=== PATIENT | female | born 1960 | race Caucasian/White ===

== ENCOUNTER → 2016-07-08 | Outpatient (CLI) | payer BC ==
[2016-07-08 08:28] LABS: Basophils % (A) 1 %; CH 31.5; CHCM 33.8; Eosinophils # (A) 0.1 k/uL (0-0.7); Eosinophils % (A) 2 %; HCT 40.4 % (34.0-46.0); HDW 2.44; HGB 13.5 gm/dL (11.4-16.0); Luc # (Auto) 0.08; Luc % (Auto) 2; Lymphocytes # (A) 1.3 k/uL (1.0-4.8); Lymphocytes % (A) 33 %; MCH 31.2 pg (25.0-35.0); MCHC 33.3 g/dL (31.0-37.0); MCV 93.7 fL (80.0-100.0); Mean Platelet Volume 6.8; Monocytes # (A) 0.2 k/uL (0-1.0); Monocytes % (A) 6 %; Neutrophils # (A) 2.1 k/uL (1.3-7.7); Neutrophils % (A) 56 %; RBC 4.32 m/uL (3.80-5.40); RDW 12.8 % (11.5-15.5); WBC 3.8 k/uL (3.8-10.6); WBC (Perox) 3.92
[2016-07-08 08:45] LABS: ALT 31 U/L (9-52); AST 18 U/L (14-36); Alkaline Phosphatase 46 U/L (38-126); Anion Gap 7 mmol/L; Blood Urea Nitrogen 21 mg/dL (7-17); Calcium 9.5 mg/dL (8.4-10.2); Carbon Dioxide 29 mmol/L (22-30); Chloride 107 mmol/L (98-107); Cholesterol 177 mg/dL (<200); Glucose 103 mg/dL (74-99); HDL Cholesterol 44 mg/dL (40-60); Non-African American GFR(MDRD) >60 (>60 ml/min/1.73 sqM); Potassium 4.4 mmol/L (3.5-5.1); Sodium 143 mmol/L (137-145); Total Bilirubin 1.1 mg/dL (0.2-1.3); Total Protein 6.9 g/dL (6.3-8.2); Triglycerides 91 mg/dL (<150)
[2016-07-08 13:04] LABS: Hemoglobin A1C 5.6 % (4.2-6.1)
[2016-07-11 07:01] LABS: HIV-1/HIV-2 Ab Screen NONREAC (NON REAC)
== END | disposition home or self-care (01) ==
LOC: LABWHC1 07:57
PROVIDERS: ATTEND Family Medicine
DX: M25.50 Pain in unspecified joint (principal); R00.2 Palpitations; E78.00 Pure hypercholesterolemia, unspecified; R73.9 Hyperglycemia, unspecified
CPT/HCPCS: 36415; 80053; 80061; 82306; 83036; 84443; 85025; 85652; 86431; 87389

== ENCOUNTER → 2016-07-27 | Outpatient (CLI) | payer BC ==
--- NOTE | 2016-07-28 06:48 | BD ---
EXAMINATION TYPE: MG DEXA axial skeleton. DATE OF EXAM: 07/27/2016 4:01 PM COMPARISON: NONE CLINICAL HISTORY: Height: Weight: FRAX RISK QUESTIONS: Alcohol (3 or more units per day): no Family History (Parent hip fracture): no Glucocorticoids (More than 3mos): no (Ex: prednisone, prednisolone, methylprednisolone, dexamethasone, and hydrocortisone). History of Fracture in Adulthood: no Secondary Osteoporosis: 1. Type 1 Diabetes: no 2. Hyperthyroidism: no 3. Menopause before 45: no 4. Malnutrition: no 5. Chronic liver disease: no Rheumatoid Arthritis: no Current Tobacco Use: no RISK FACTORS HISTORY OF: Hip Fracture (Right/Left): no Spine Fracture: no History of Wrist Fracture: no Surgery to Spine/Hip(right/left)/Wrist (right/left): no Family History of Osteoporosis: yes Active: yes Diet low in dairy products/other sources of calcium: no Postmenopausal woman: age 46 Lost more than 2 inches in height since high school: no Frequent falls: no Poor Health: no Adrenal Insufficiency: no MEDICATIONS: metoprolol tartrate, ambien cr Additional History: EXAM MEASUREMENTS: Bone mineral densitometry was performed using the [employer] System. Bone mineral density as measured about the Lumbar spine is: ----- L1-L4(G/cm2): 0.983 T Score Values are as follows: ----- L2: -1.7 ----- L3: -1.6 ----- L4: -2.3 ----- L1-L4: -1.6 Bone mineral density has: decreased -22.6 % since study of: 2001 Bone mineral density about the R hip (g/cm2): 0.848 Bone mineral density about the L hip (g/cm2): 0.819 T Score values are as follows: -----R Neck: -1.4 -----L Neck: -1.6 -----R Total: -1.2 -----L Total: -1.1 Bone mineral density has: decreased -17.3 % since study of: 2001 IMPRESSION: OSTEOPENIA. MAJOR OSTEOPOROTIC FRACTURE RISK: 6.9% HIP FRACTURE RISK: 0.6% NOTE: T-SCORE=SD OF THE YOUNG ADULT MEAN.
--- NOTE | 2016-07-28 15:49 | MM ---
Reason for exam: screening (asymptomatic). Last mammogram was performed 1 year and 10 months ago. History: Patient is postmenopausal, has history of other cancer at age 49, and had first child at age 32. Family history of breast cancer in maternal aunt at age 60. Physical Findings: A clinical breast exam by your physician is recommended on an annual basis and results should be correlated with mammographic findings. MG 3D Screening Mammo W/Cad Bilateral CC and MLO view(s) were taken. Prior study comparison: September 14, 2014, left breast MG work up mamm w CAD LT. July 09, 2014, bilateral MG screening mammo w CAD. The breast tissue is heterogeneously dense. This may lower the sensitivity of mammography. Asymmetric breast tissue in the right breast. No significant changes when compared with prior studies. ASSESSMENT: Benign, BI-RAD 2 RECOMMENDATION: Routine screening mammogram of both breasts in 1 year.
== END | disposition home or self-care (01) ==
LOC: RADMAMWWP 15:41
PROVIDERS: ATTEND Obstetrics & Gynecology
DX: Z12.31 Encounter for screening mammogram for malignant neoplasm of breast (principal); M85.80 Other specified disorders of bone density and structure, unspecified site; Z78.0 Asymptomatic menopausal state
CPT/HCPCS: 77080; 77063; G0202

== ENCOUNTER → 2017-04-14 | Outpatient (CLI) | payer BC ==
[2017-04-14 17:45] LABS: Progesterone 12.5 ng/mL
== END | disposition home or self-care (01) ==
LOC: LABWHC1 09:17
PROVIDERS: ATTEND Clinical Nurse Specialist Women's Health
DX: R92.8 Other abnormal and inconclusive findings on diagnostic imaging of breast (principal); Z78.0 Asymptomatic menopausal state
CPT/HCPCS: 36415; 82670; 84144; 84403

== ENCOUNTER → 2017-06-22 | Outpatient (CLI) | payer BC ==
[2017-06-22 09:44] LABS: HCT 41.3 % (34.0-46.0); MCHC 33.8 g/dL (31.0-37.0); MCV 91.8 fL (80.0-100.0); Mean Platelet Volume 7.5; Platelet Count 230 k/uL (150-450); RDW 12.5 % (11.5-15.5); WBC 5.5 k/uL (3.8-10.6)
[2017-06-22 10:32] LABS: ALT 35 U/L (9-52); AST 22 U/L (14-36); Albumin 3.9 g/dL (3.5-5.0); Alkaline Phosphatase 51 U/L (38-126); Anion Gap 11 mmol/L; Blood Urea Nitrogen 16 mg/dL (7-17); Calcium 9.3 mg/dL (8.4-10.2); Carbon Dioxide 26 mmol/L (22-30); Chloride 105 mmol/L (98-107); Cholesterol 159 mg/dL (<200); Glucose 104 mg/dL (74-99); HDL Cholesterol 32 mg/dL (40-60); LDL Cholesterol,Calculated 105 mg/dL (0-99); Potassium 4.5 mmol/L (3.5-5.1); Sodium 142 mmol/L (137-145); Total Bilirubin 0.7 mg/dL (0.2-1.3); Total Protein 6.6 g/dL (6.3-8.2); Triglycerides 110 mg/dL (<150)
[2017-06-22 19:32] LABS: Hemoglobin A1C 5.4 % (4.0-6.0)
== END | disposition home or self-care (01) ==
LOC: LABWHC1 09:14
PROVIDERS: ATTEND Family Medicine
DX: E78.00 Pure hypercholesterolemia, unspecified (principal); R73.09 Other abnormal glucose
CPT/HCPCS: 36415; 80053; 80061; 83036; 85027

== ENCOUNTER → 2018-10-24 | Outpatient (CLI) | payer BC ==
--- NOTE | 2018-10-24 08:59 | MM ---
Reason for exam: clinical finding. Last mammogram was performed 2 years and 3 months ago. History: Patient is postmenopausal, has history of other cancer at age 49, and had first child at age 32. Family history of breast cancer in maternal aunt at age 60. Physical Findings: Nurse did not find any significant physical abnormalities on exam. MG 3D Diag Mammo W/Cad JAXON Bilateral CC and MLO view(s) were taken. Prior study comparison: July 27, 2016, bilateral MG 3d screening mammo w/cad. September 14, 2014, left breast MG work up mamm w CAD LT. The breast tissue is heterogeneously dense. This may lower the sensitivity of mammography. There is no discrete abnormality. These results were verbally communicated with the patient and result sheet given to the patient on 10/24/18. ASSESSMENT: Incomplete: need additional imaging evaluation, BI-RAD 0 RECOMMENDATION: Ultrasound of the right breast. (palpable by patient)
== END | disposition home or self-care (01) ==
LOC: RADMAMWWP 07:38
PROVIDERS: ATTEND Obstetrics & Gynecology Obstetrics
DX: R92.8 Other abnormal and inconclusive findings on diagnostic imaging of breast (principal); M89.9 Disorder of bone, unspecified; Z78.0 Asymptomatic menopausal state
CPT/HCPCS: 77062; 77066

== ENCOUNTER → 2018-10-24 | Outpatient (CLI) | payer BC ==
--- NOTE | 2018-10-24 09:01 | USB ---
Reason for exam: clinical finding. History: Patient is postmenopausal, has history of other cancer at age 49, and had first child at age 32. Family history of breast cancer in maternal aunt at age 60. US Breast Limited RT Right limited breast ultrasound including focal area of concern, retroareolar and axilla demonstrates a 4 x 4 x 5mm oval, cystic lesion at 10 o'clock. Overall fibrocystic change. Thin walled cyst in fibroglandular dense tissue. These results were verbally communicated with the patient and result sheet given to the patient on 10/24/18. ASSESSMENT: Benign, BI-RAD 2 RECOMMENDATION: Routine screening mammogram of both breasts in 1 year.
--- NOTE | 2018-10-24 11:42 | BD ---
EXAMINATION TYPE: Axial Bone Density DATE OF EXAM: 10/24/2018 COMPARISON: 07.27.2016 DEXA bone scan CLINICAL HISTORY: 58.YR OLD FEMALE....ICD-10 CODE: M89.9 DISORDER OF BONE Height: 69 Weight: 150 FRAX RISK QUESTIONS: Family History (Parent hip fracture): YES Glucocorticoids (More than 3mos): NOT 3 MONTHS (Ex: prednisone, prednisolone, methylprednisolone, dexamethasone, and hydrocortisone). RISK FACTORS HISTORY OF: History of Wrist Fracture: LT WRIST, TEENAGER Family History of Osteoporosis: YES, PATERNAL GRAND MOTHER WITH HIP FX, GR AUNT, Active: YES Postmenopausal woman: YES AT 48 YRS OLD Lost more than 2 inches in height since high school: YES MEDICATIONS: Prednisone or other steroids: YES, EARLIER THIS YR FOR HERNIATED DISC, AND NASACORT, How Long: YRS Additional Medications: METROPROLOL TARTRATE, AMBIEN CR, ONE A DAY MULTIVITAMIN Additional History: OSTEOPOROSIS, EXAM MEASUREMENTS: Bone mineral densitometry was performed using the [employer] System. Bone mineral density as measured about the Lumbar spine is: ----- L1-L4(G/cm2): 0.972 T Score Values are as follows: ----- L1: -0.8 ----- L2: -1.8 ----- L3: -2.2 ----- L4: -2.1 ----- L1-L4: -1.7 Bone mineral density has: Decreased -1.4% since study of: 07.27.2016 Bone mineral density about the R hip (g/cm2): 0.891 Bone mineral density about the L hip (g/cm2): 0.881 T Score values are as follows: -----R Neck: -1.2 -----L Neck: -1.5 -----R Total: -0.9 -----L Total: -1.0 Bone mineral density has: Increased 2.2% since study of: 07.27.2016 FRAX%s: THERE IS A 14.8% CHANCE FOR A MAJOR OSTEOPOROTIC FX AND A 0.7% FOR HIP.....PROBABILITY FOR FX IN 10 YRS TIME IMPRESSION: Osteopenia (T Score between -2.5 and -1) redemonstrated. There remains slightly increased risk of fracture and the patient may be considered for treatment. Re-Screen 2-5 years. NOTE: T-SCORE=SD OF THE YOUNG ADULT MEAN.
== END | disposition home or self-care (01) ==
LOC: RADUSWWP 07:03
PROVIDERS: ATTEND Obstetrics & Gynecology Obstetrics
DX: N63.13 Unspecified lump in the right breast, lower outer quadrant (principal); M85.80 Other specified disorders of bone density and structure, unspecified site; R92.8 Other abnormal and inconclusive findings on diagnostic imaging of breast; Z78.0 Asymptomatic menopausal state
CPT/HCPCS: 77080

== ENCOUNTER → 2018-10-28 | Outpatient (CLI) | payer BC ==
[2018-10-28 10:00] LABS: MCHC 32.5 g/dL (31.0-37.0); MCV 95.2 fL (80.0-100.0); Mean Platelet Volume 7.4; Platelet Count 190 k/uL (150-450); RBC 4.52 m/uL (3.80-5.40); RDW 13.8 % (11.5-15.5); WBC 5.7 k/uL (3.8-10.6)
[2018-10-28 16:18] LABS: African American GFR (CKD) 92.9 (60.0-200.0); Albumin 4.3 g/dL (3.80-4.90); Albumin/Globulin Ratio 2.26 (1.60-3.17); Anion Gap 8.1 mmol/L (4.00-12.00); Calcium 9.5 mg/dL (8.7-10.3); Carbon Dioxide 26.9 mmol/L (21.6-31.8); Chol/HDL Ratio 3.54; Globulin 1.9 g/dL (1.6-3.3); LDL Cholesterol,Calculated 118.2 mg/dL (0.0-131.0); Non-African American GFR(CKD) 80.1 (60.0-200.0); Potassium 4.8 mmol/L (3.5-5.5); Total Bilirubin 0.8 mg/dL (0.2-1.2); Total Protein 6.2 g/dL (6.2-8.2); VLDL Calculation 18.8 mg/dL (5.00-40.00)
[2018-10-28 18:56] LABS: Hemoglobin A1C 5.7 % (4.0-6.0)
== END | disposition home or self-care (01) ==
LOC: LABWHC1 08:53
PROVIDERS: ATTEND Family Medicine
DX: E78.00 Pure hypercholesterolemia, unspecified (principal); R73.09 Other abnormal glucose
CPT/HCPCS: 36415; 80053; 80061; 83036; 84443; 85027

== ENCOUNTER → 2019-01-15 | Outpatient (CLI) | payer BC ==
[2019-01-15 09:43] VITALS: BMI 20.7
== END | disposition home or self-care (01) ==
LOC: DBWHC3 08:05
PROVIDERS: ATTEND Family Medicine
DX: R73.09 Other abnormal glucose (principal)
CPT/HCPCS: 97802

== ENCOUNTER → 2019-09-10 | Outpatient (CLI) | payer BC | END | disposition home or self-care (01) | LOC: RADUSWWP 09:46 | PROVIDERS: ATTEND Obstetrics & Gynecology | DX: Z53.9 Procedure and treatment not carried out, unspecified reason (principal) ==

== ENCOUNTER → 2019-09-24 | Outpatient (CLI) | payer BC ==
--- NOTE | 2019-09-25 09:29 | MM ---
Reason for exam: clinical finding. Last mammogram was performed 11 months ago. History: Patient is postmenopausal, has history of other cancer at age 49, and had first child at age 32. Family history of breast cancer in maternal aunt at age 60. Indicated problem(s): lump or thickening in the left breast. Physical Findings: Nurse did not find any significant physical abnormalities on exam. MG 3D Diag Mammo W/Cad JAXON Bilateral CC and MLO view(s) were taken. Prior study comparison: October 24, 2018, bilateral MG 3d diag mammo w/cad JAXON. July 27, 2016, bilateral MG 3d screening mammo w/cad. The breast tissue is heterogeneously dense. This may lower the sensitivity of mammography. No significant new findings when compared with previous films. These results were verbally communicated with the patient and result sheet given to the patient on 09/24/19. ASSESSMENT: Benign, BI-RAD 2 RECOMMENDATION: Routine screening mammogram of both breasts in 1 year.
--- NOTE | 2019-09-25 09:30 | USB ---
Reason for exam: clinical finding. History: Patient is postmenopausal, has history of other cancer at age 49, and had first child at age 32. Family history of breast cancer in maternal aunt at age 60. US Breast LT Technologist: Isha Horn Left complete breast ultrasound includes all four quadrants, the retroareolar region and axilla. Finding demonstrates a 3.6mm duct with internal debris at the posterior nipple These results were verbally communicated with the patient and result sheet given to the patient on 09/24/19. ASSESSMENT: Benign, BI-RAD 2 RECOMMENDATION: Routine screening mammogram of both breasts in 1 year.
== END | disposition home or self-care (01) ==
LOC: RADMAMWWP 14:58
PROVIDERS: ATTEND Obstetrics & Gynecology
DX: N63.20 Unspecified lump in the left breast, unspecified quadrant (principal)
CPT/HCPCS: 77062; 77066

== ENCOUNTER → 2021-01-31 | Outpatient (CLI) | payer BC ==
--- NOTE | 2021-02-02 10:11 | MM ---
Reason for exam: screening (asymptomatic). Last mammogram was performed 1 year and 4 months ago. History: Patient is postmenopausal, has history of other cancer at age 37, and had first child at age 32. Family history of breast cancer in maternal aunt at age 60. Took hormonal contraceptives for 5 years beginning at age 25. Took other hormone for 1 year beginning at age 55. Physical Findings: A clinical breast exam by your physician is recommended on an annual basis and results should be correlated with mammographic findings. MG 3D Screening Mammo W/Cad Bilateral CC and MLO view(s) were taken. Prior study comparison: September 24, 2019, bilateral MG 3d diag mammo w/cad JAXON. October 24, 2018, bilateral MG 3d diag mammo w/cad JAXON. The breast tissue is heterogeneously dense. This may lower the sensitivity of mammography. There is no discrete abnormality. ASSESSMENT: Negative, BI-RAD 1 RECOMMENDATION: Routine screening mammogram of both breasts in 1 year.
== END | disposition home or self-care (01) ==
LOC: RADMAMWWP 15:35
PROVIDERS: ATTEND Obstetrics & Gynecology
DX: Z12.31 Encounter for screening mammogram for malignant neoplasm of breast (principal); Z80.3 Family history of malignant neoplasm of breast; Z78.0 Asymptomatic menopausal state
CPT/HCPCS: 77063; 77067

== ENCOUNTER → 2021-07-18 | Outpatient (CLI) | payer BC ==
[2021-07-18 18:29] LABS: Basophils # (A) 0.02 X 10*3/uL (0.00-0.10); Basophils % (A) 0.5 %; Eosinophils # (A) 0.05 X 10*3/uL (0.04-0.35); Eosinophils % (A) 1.3 %; HCT 41.7 % (37.2-46.3); HGB 13.7 g/dL (12.0-15.0); Immature Grans, Automated 0.3 %; Lymphocytes # (A) 1.34 X 10*3/uL (0.90-5.00); Lymphocytes % (A) 34.3 %; MCH 30.9 pg (27.0-32.0); MCHC 32.9 g/dL (32.0-37.0); MCV 93.9 fL (80.0-97.0); Mean Platelet Volume 10.1 fL (9.5-12.2); Monocytes # (A) 0.33 X 10*3/uL (0.20-1.00); Monocytes % (A) 8.4 %; NRBC Per 100 WBC 0 /100 WBCS (0.0-0.0); Neutrophils # (A) 2.16 X 10*3/uL (1.80-7.70); Neutrophils % (A) 55.2 %; Platelet Count 171 X 10*3/uL (140-440); RBC 4.44 X 10*6/uL (4.10-5.20); RDW 12.2 % (11.5-14.5); WBC 3.91 X 10*3/uL (4.50-10.00)
[2021-07-18 18:54] LABS: ALT 23 U/L (8-44); AST 20 U/L (13-35); African American GFR (CKD) 91.6 (60.0-200.0); Albumin 4.6 g/dL (3.8-4.9); Albumin/Globulin Ratio 1.77 (1.60-3.17); Alkaline Phosphatase 61 U/L (41-126); BUN/Creat Ratio 22.13 Ratio (12.00-20.00); Blood Urea Nitrogen 17.7 mg/dL (9.0-27.0); Calcium 9.7 mg/dL (8.7-10.3); Carbon Dioxide 24.2 mmol/L (20.0-27.5); Chloride 104 mmol/L (96-109); Chol/HDL Ratio 5.69 Ratio; Globulin 2.6 g/dL (1.6-3.3); Glucose 100 mg/dL (70-110); LDL Cholesterol,Calculated 163.6 mg/dL (0.0-131.0); Potassium 4.1 mmol/L (3.5-5.5); Sodium 140 mmol/L (135-145); Total Protein 7.2 g/dL (6.2-8.2)
== END | disposition home or self-care (01) ==
LOC: LABWHC1 13:51
PROVIDERS: ATTEND Family Medicine
DX: Z00.00 Encounter for general adult medical examination without abnormal findings (principal); Z13.220 Encounter for screening for lipoid disorders; I49.3 Ventricular premature depolarization; G47.00 Insomnia, unspecified; E78.2 Mixed hyperlipidemia; E55.9 Vitamin D deficiency, unspecified; E04.1 Nontoxic single thyroid nodule
CPT/HCPCS: 36415; 80053; 80061; 82306; 84443; 85025

== ENCOUNTER → 2021-08-09 | Outpatient (CLI) | payer BC ==
[2021-08-09 14:41] LABS: T4, Free (Free Thyroxine) 1.25 ng/dL (0.800-1.800)
== END | disposition home or self-care (01) ==
LOC: LABWHC1 08:24
PROVIDERS: ATTEND Otolaryngology
DX: E04.1 Nontoxic single thyroid nodule (principal); R53.83 Other fatigue
CPT/HCPCS: 36415; 84439; 84443; 86376

== ENCOUNTER → 2021-08-23 | Outpatient (CLI) | payer BC | END | disposition home or self-care (01) | LOC: RADUSWWP 13:25 | PROVIDERS: ATTEND Family Medicine | DX: Z53.9 Procedure and treatment not carried out, unspecified reason (principal) ==

== ENCOUNTER → 2021-08-23 | Outpatient (CLI) | payer BC ==
--- NOTE | 2021-08-23 18:53 | US ---
EXAMINATION TYPE: US thyroid st tissue head/neck DATE OF EXAM: 08/23/2021 COMPARISON: NONE CLINICAL HISTORY: 60-year-old female R22.1 Localized swelling, mass and lump, neck. Pt states swellin g right side of neck GLAND SIZE: Right Lobe: 5.0 x 1.3 x 1.2 cm Overall Parenchyma: heterogenous Left Lobe: 4.2 x 1.6 x 1.7 cm Overall Parenchyma: heterogeneous Isthmus Thickness: 0.5 cm NODULES RIGHT: # of nodules measured on right: 1 1. 0.5 X 0.3 x 0.4 cm, mid, cystic or almost completely cystic, anechoic nodule, which is wider josephine n tall, with smooth margins, without echogenic foci. Prior size: No prior LEFT: # of nodules measured on left: 1 1. 2.8 X 1.4 x 1.7 cm, mid , solid or almost completely solid, heterogeneous hypoechoic nodule, whi ch is wider than tall, with ill-defined margins, without echogenic foci. Prior size: No prior ISTHMUS: # of nodules measured in the isthmus: 0 Bilateral neck scanned, no evidence of lymphadenopathy. Large nodule left lobe of thyroid. IMPRESSION: Borderline thyromegaly. Solitary 2.8 cm solid TR4 nodule in the left lobe for which FNA/biopsy can be performed.
== END | disposition home or self-care (01) ==
LOC: RADUSWWP 13:23
PROVIDERS: ATTEND Otolaryngology
DX: E04.1 Nontoxic single thyroid nodule (principal)
CPT/HCPCS: 76536

== ENCOUNTER → 2021-08-26 | Outpatient (CLI) | payer BC ==
--- NOTE | 2021-08-26 16:12 | US ---
EXAMINATION TYPE: US carotid duplex BILAT DATE OF EXAM: 08/26/2021 COMPARISON: NONE CLINICAL HISTORY: [id number] CAROTID. palpable on right neck EXAM MEASUREMENTS: RIGHT: Peak Systolic Velocity (PSV) cm/sec ----- Right CCA: 62.1 ----- Right ICA: 116.1 ----- Right ECA: 68.8 ICA/CCA ratio: 1.9 RIGHT: End Diastole cm/sec ----- Right CCA: 15.9 ----- Right ICA: 45.8 ----- Right ECA: 9.7 LEFT: Peak Systolic Velocity (PSV) cm/sec ----- Left CCA: 58.8 ----- Left ICA: 96.0 ----- Left ECA: 68.1 ICA/CCA ratio: 1.6 LEFT: End Diastole cm/sec ----- Left CCA: 18.9 ----- Left ICA: 42.1 ----- Left ECA: 9.7 VERTEBRALS (direction of flow): Right Vertebral: Antegrade Left Vertebral: Antegrade Rhythm: Normal Mild homogeneous plaque with no stenosis Palpable area on the right was normal appearing lymph node = 1.0 x 0.8 x 0.6cm IMPRESSION: 1. Atheromatous plaquing without significant flow-limiting stenosis. Intimal thickening is present. 2. A palpable area appears to correlate with a small lymph node by ultrasound. Follow-up can be perfo rmed as clinically indicated. Criteria for Assigning % of Stenosis / Diameter reduction (Estimation based on the indirect measurements of the internal carotid artery velocities (ICA PSV). 1. Normal (no stenosis)=ICA PSV < 125 cm/s: ratio < 2.0: ICA EDV<40 cm/s. 2. Less than 50% stenosis=ICA PSV < 125 cm/s: ratio < 2.0: ICA EDV<40 cm/s. 3. 50 to 69% stenosis=ICA PSV of 125 to 230 cm/s: ration 2.0 ? 4.0: ICA EDV 40-100 cm/s. 4. Greater than 70% stenosis to near occlusion= ICA PSV > 230 cm/s: ratio > 4.0: ICA EDV > 100 cm/s. 5. Near occlusion= ICA PSV velocities may be low or undetectable: variable ratio and ICA EDV. 6. Total occlusion=unable to detect flow.
--- NOTE | 2021-08-26 16:15 | US ---
EXAMINATION TYPE: US kidneys/renal and bladder DATE OF EXAM: 08/26/2021 COMPARISON: NONE CLINICAL HISTORY: Q619 CYSTIC KIDNEY DISEASE. known renal cyst EXAM MEASUREMENTS: Right Kidney: 10.0 x 4.5 x 4.6 cm Left Kidney: 12.2 x 3.9 x 5.6 cm Right Kidney: cyst seen midline = 2.3cm . This appears simple. Left Kidney: No hydronephrosis or masses seen Bladder: wnl Bilateral Jets seen: yes IMPRESSION: Right renal simple appearing cyst.
== END | disposition home or self-care (01) ==
LOC: RADUSWWP 14:43
PROVIDERS: ATTEND Otolaryngology
DX: N28.1 Cyst of kidney, acquired (principal); I67.2 Cerebral atherosclerosis
CPT/HCPCS: 76770; 93880

== ENCOUNTER 2021-09-15 12:36 | Day surgery (SDC) | payer BC ==
[2021-09-15 13:03] VITALS: BP 116/57; PULSE 56; RESP 16; TEMP 98
--- NOTE | 2021-09-15 14:13 | US ---
ULTRASOUND GUIDED FNA THYROID BIOPSY: CLINICAL HISTORY: 2.8 cm left thyroid nodule FINDINGS: The procedure was explained to the patient. The risks, complications, benefits and alternatives were discussed and any questions were answered. Informed consent was obtained. Patient was placed supin e on the ultrasound table and prepped and draped in the usual sterile fashion. Utilizing a 25 gauge needle, five passes were made into the requested left thyroid nodule. Patient was stable throughout the procedure. Pathology is pending. All elements of maximal barrier technique were utilized. IMPRESSION: 1. Successful ultrasound guided FNA thyroid biopsy.
== END 2021-09-15 14:05 | disposition home or self-care (01) ==
LOC: RADPROMAIN 12:36
PROVIDERS: ATTEND Otolaryngology
DX: E04.1 Nontoxic single thyroid nodule (principal)
CPT/HCPCS: 10005; 88173; 88305

== ENCOUNTER → 2022-03-06 | Outpatient (CLI) | payer BC ==
--- NOTE | 2022-03-07 07:09 | MM ---
Reason for Exam: Screening (asymptomatic). Last mammogram was performed 1 year(s) and 1 month(s) ago. Patient History: Menarche at age 12. First Full-Term at age 32. Late child-bearing (after 30). Postmenopausal. Other cancer, age 37. Hormonal Contraceptives for 5 years from age 25 until age 30. Maternal aunt had breast cancer, age 60. Risk Values: Meghan 5 year model risk: 2.0%. NCI Lifetime model risk: 8.4%. Prior Study Comparison: 10/24/2018 Bilateral Diagnostic Mammogram, [facility]. 09/24/2019 Bilateral Diagnostic Mammogram, [facility]. 01/31/2021 Bilateral Screening Mammogram, [facility]. Tissue Density: The breast tissue is heterogeneously dense. This may lower the sensitivity of mammography. Findings: Analyzed By CAD. Subtle distortion in the middle depth upper aspect right breast now present MLO image 31 possibly corresponding to CC image 33. Follow-up advised. Overall Assessment: Incomplete: need additional imaging evaluation, BI-RAD 0 Management: Special View Mammogram of the right breast. Return for additional spot 3-D views right breast and 3-D true lateral view right breast. Electronically signed and approved by: Felipe Altamirano M.D.
== END | disposition home or self-care (01) ==
LOC: RADMAMWWP 11:06
PROVIDERS: ATTEND Obstetrics & Gynecology
DX: Z12.31 Encounter for screening mammogram for malignant neoplasm of breast (principal); Z78.0 Asymptomatic menopausal state; Z80.3 Family history of malignant neoplasm of breast
CPT/HCPCS: 77063; 77067

== ENCOUNTER → 2022-03-09 | Outpatient (CLI) | payer BC ==
--- NOTE | 2022-03-09 11:04 | MM ---
Reason for Exam: Additional evaluation requested from prior study. Last screening mammogram was performed less than 1 month ago. Patient History: Menarche at age 12. First Full-Term at age 32. Late child-bearing (after 30). Postmenopausal. Other cancer, age 37. Hormonal Contraceptives for 5 years from age 25 until age 30. Maternal aunt had breast cancer, age 60. Risk Values: Meghan 5 year model risk: 2.0%. NCI Lifetime model risk: 8.4%. Tissue Density: Right: The breast tissue is heterogeneously dense. This may lower the sensitivity of mammography. Findings: Analyzed By CAD. Asymmetric density and completely disperses superior right breast at a middle depth. Not clearly identified on the spot compression CC view. Further ultrasound evaluation recommended. Overall Assessment: Incomplete: need additional imaging evaluation, BI-RAD 0 Management: Diagnostic Breast Ultrasound of the right breast. 10:00 to 2:00 superiorly. Electronically signed and approved by: Thad Pope M.D. Radiologist
--- NOTE | 2022-03-09 15:16 | USB ---
Patient History: Menarche at age 12. First Full-Term at age 32. Late child-bearing (after 30). Postmenopausal. Other cancer, age 37. Hormonal Contraceptives for 5 years from age 25 until age 30. Maternal aunt had breast cancer, age 60. Risk Values: Meghan 5 year model risk: 2.0%. NCI Lifetime model risk: 8.4%. Technique: Method: Targeted. Prior Study Comparison: 09/24/2019 Bilateral Diagnostic Mammogram, [facility]. 01/31/2021 Bilateral Screening Mammogram, [facility]. 03/06/2022 Bilateral MG 3D screening mammo w/cad, [facility]. Findings: The upper outer quadrant of the right breast, the upper inner quadrant of the left breast, the axilla of the right breast and the retroareolar of the right breast were scanned. Targeted ultrasound right breast 10:00 to 2:00 including the subareolar region and axilla. At the 12:00 position, 5 cm from the nipple, there is a suspicious hypoechoic irregular lesion, vertically oriented with posterior shadowing measuring 6 x 6 x 5 mm. This is suspicious and biopsy is recommended. Mammographic correlate. At the 10:00 position, 4 cm from the nipple, there is a benign 4 mm cyst. No other solid or cystic lesion. No axillary lymphadenopathy. Overall Assessment: Highly suggestive of malignancy, BI-RAD 5 Management: Ultrasound Core Biopsy of the right breast. Recommend completion ultrasound of the whole right breast at the time of biopsy. Results were given to the patient verbally at the time of exam. Electronically signed and approved by: Thad Pope M.D. Radiologist
== END | disposition home or self-care (01) ==
LOC: RADMAMWWP 10:28
PROVIDERS: ATTEND Obstetrics & Gynecology
DX: R92.8 Other abnormal and inconclusive findings on diagnostic imaging of breast (principal); Z78.0 Asymptomatic menopausal state; Z80.3 Family history of malignant neoplasm of breast
CPT/HCPCS: 77061; 77065

== ENCOUNTER → 2022-03-14 | Outpatient (CLI) | payer BC ==
--- NOTE | 2022-03-14 15:46 | US ---
EXAMINATION TYPE: US thyroid st tissue head/neck DATE OF EXAM: 03/14/2022 COMPARISON: 08/23/2021 CLINICAL HISTORY: 61-year-old female E04.1 THYROID NODULE. F/U thyroid TECHNIQUE: Multiple sonographic images of the thyroid gland are obtained. FINDINGS: GLAND SIZE: Right Lobe: 5.5 x 1.6 x 1.6 cm Overall Parenchyma: heterogenous Left Lobe: 5.0 x 1.7 x 1.7 cm Overall Parenchyma: heterogeneous Isthmus Thickness: 0.4 cm NODULES RIGHT: # of nodules measured on right: 1 1. 0.6 X 0.3 x 0.4 cm, mid, benign cyst at the midpole. Prior size: 0.5 x 0.3 x 0.4 cm LEFT: # of nodules measured on left: 2 1. 2.9 X 1.4 x 2.0 cm, mid, solid or almost completely solid, hypoechoic TR4 nodule, which is wider than tall, with ill-defined margins, without echogenic foci. - previously biopsied Prior size: 2.8 x 1.4 x 1.7 cm 2. 1.2 X 0.8 x 0.9 cm, upper, solid or almost completely solid, TR4 solid hypoechoic nodule, which is wider than tall, with smooth margins, without echogenic foci. Prior size: new nodule ISTHMUS: # of nodules measured in the isthmus: 0 Supervisor Alteration Workroom notes: Bilateral neck scanned, no evidence of lymphadenopathy. IMPRESSION: 1. Correlate for multinodular goiter. Dominant 2.9 x 2.0 cm left midpole thyroid nodule is similar to slightly larger (previously 2.8 x 1.7 cm) but was previously biopsied. 2. There appears to be a new solid TR4 nodule at the left upper lobe measuring 1.2 cm. Reassess at fo llow-up.
== END | disposition home or self-care (01) ==
LOC: RADUSWWP 14:44
PROVIDERS: ATTEND Otolaryngology
DX: E04.1 Nontoxic single thyroid nodule (principal)
CPT/HCPCS: 76536

== ENCOUNTER → 2022-03-23 | Day surgery (SDC) | payer BC ==
--- NOTE | 2022-04-03 10:07 | MM ---
Reason for Exam: Post Procedure Mammogram. Last screening mammogram was performed less than 1 month ago. Patient History: Menarche at age 12. First Full-Term at age 32. Late child-bearing (after 30). Postmenopausal. Other cancer, age 37. Hormonal Contraceptives for 5 years from age 25 until age 30. Maternal aunt had breast cancer, age 60. Risk Values: Meghan 5 year model risk: 2.0%. NCI Lifetime model risk: 8.4%. Prior Study Comparison: 01/31/2021 Bilateral Screening Mammogram, [facility]. 03/06/2022 Bilateral MG 3D screening mammo w/cad, [facility]. 03/09/2022 Right MG 3D work up w/cad RT, [facility]. Tissue Density: Right: The breast tissue is heterogeneously dense. This may lower the sensitivity of mammography. Pathology Description: Location: 12 o'clock. Needle Type: Celero Cores: 2 Gauge: 12 The procedure of ultrasound guided core biopsy was explained to the patient. Benefits, alternatives, and risks were discussed. An informed consent was then obtained. The suspicious, vertically oriented shadowing lesion at the 12:00 position, 5 cm from the nipple measuring approximately 1 cm is identified and targeted for biopsy. The patient was placed in supine positioning for imaging and for the procedure. The overlying skin was prepped and draped in usual sterile fashion. Lidocaine was used as anesthetic into the skin and subcutaneous tissue up to area of concern in the right breast. Under ultrasound guidance, initially, multiple samples were attempted with a 13-gauge mammotome Elite biopsy gun. However, there was device malfunction; no samples were identified in the specimen container, and we switched to a 12-gauge vacuum-assisted Celero device. 2 cores were obtained and placed in formalin solution. Following this, a butterfly Hydromark clip was left in lesion. The patient tolerated the procedure well without any immediate complication. The patient was kept in the radiology department for short stay after the procedure and then discharged home in stable condition. Postprocedure mammogram: The patient was transferred to mammography for physician ordered post procedure mammogram for clip placement verification. Post procedure mammogram shows clip at the 12:00 mammographic abnormality. IMPRESSION: Successful, uncomplicated ultrasound guided core biopsy of the BI-RADS 5, 12:00 right breast mass; full pathology results to follow. Pathology Results: Result: Malignant, Invasive ductal carcinoma. 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 See Surgical Pathology Cancer Case Summary and comment. Overall Assessment: Malignant Assessment: MG diagnostic mammo RT wo CAD - Right: Known biopsy proven malignancy, BI-RAD 6. Management: Surgical Consultation of the right breast. Electronically signed and approved by: Thad Pope M.D. Radiologist
== END ==
LOC: RADUSWWP 12:38
PROVIDERS: ATTEND Surgery
DX: D05.11 Intraductal carcinoma in situ of right breast (principal); R92.8 Other abnormal and inconclusive findings on diagnostic imaging of breast; Z17.0 Estrogen receptor positive status [ER+]; Z78.0 Asymptomatic menopausal state; Z80.3 Family history of malignant neoplasm of breast
CPT/HCPCS: 88305; 88342; 88341; 77065; 19083; A4648

== ENCOUNTER → 2022-06-28 | Outpatient (CLI) | payer BC ==
--- NOTE | 2022-06-28 15:20 | XR ---
EXAMINATION TYPE: XR ankle complete LT DATE OF EXAM: 06/28/2022 COMPARISON: NONE HISTORY: Pain TECHNIQUE: 3 views of the left ankle are submitted for evaluation. FINDINGS: There is no evidence for fracture or dislocation. Ankle mortise is intact. Soft tissues are within normal limits. IMPRESSION: No evidence for acute fracture.
== END | disposition home or self-care (01) ==
LOC: RADXRYALE 15:02
PROVIDERS: ATTEND Physician Assistant
DX: M25.572 Pain in left ankle and joints of left foot (principal)

== ENCOUNTER → 2022-07-17 | Outpatient (CLI) | payer BC ==
--- NOTE | 2022-07-17 14:23 | BD ---
EXAMINATION TYPE: Axial Bone Density DATE OF EXAM: 07/17/2022 CLINICAL HISTORY: 61 years old Female. ICD-10 CODE: C50.511 BREAST CA Comparison: Prior bone scan 2018. Height: 70 Weight: 153.0 FRAX RISK QUESTIONS: Alcohol (3 or more units per day): no Family History (Parent hip fracture): no Glucocorticoids (More than 3mos): no History of Fracture in Adulthood: Wrist Secondary Osteoporosis: 1. Type 1 Diabetes: no 2. Hyperthyroidism: no 3. Menopause before 45: no 4. Malnutrition: no 5. Chronic liver disease: no Rheumatoid Arthritis: no Current Tobacco Use: no RISK FACTORS HISTORY OF: Hip Fracture (Right/Left): no Spine Fracture: no History of Wrist Fracture: Lt Wrist When: Age 17 Surgery to Spine/Hip(right/left)/Wrist (right/left): Lt wrist When: age 17 Family History of Osteoporosis: Paternal Grandmother Active: no Diet low in dairy products/other sources of calcium: no Postmenopausal woman: no Take estrogen and/or progesterone medications: no Lost more than 2 inches in height since high school: no Frequent falls: no Poor Health: no Hyperparathyroidism: no Adrenal Insufficiency: no MEDICATIONS: Prednisone or other steroids:no Thyroid Medications: no Osteoporosis Medications: no Additional Medications: Citracal, Vit D, Calcium, Sodium, Fish Oil, [place] 3, Zinc, Tumeric, Xanax, An astrozole Additional History: Breast Ca. Mar 2022 with lumpectomy EXAM MEASUREMENTS: Bone mineral densitometry was performed using the [employer] System. Bone mineral density as measured about the Lumbar spine is: ----- L1-L4(G/cm2): 0.899 T Score Values are as follows: ----- L1: -1.4 ----- L2: -2.2 ----- L3: -2.5 ----- L4: -3.1 ----- L1-L4: -2.3 Z Score Values are as follows: ----- L1: -0.1 ----- L2: -0.8 ----- L3: -1.2 ----- L4: -1.8 ----- L1-L4: -1.0 Bone mineral density has: decreased -7.5 % since study of: 10/24/2018 Bone mineral density about the R hip (g/cm2): 0.806 Bone mineral density about the L hip (g/cm2): 0.833 T Score values are as follows: -----R Neck: -1.9 -----L Neck: -2.0 -----R Total: -1.6 -----L Total: -1.4 Z Score values are as follows: -----R Neck: -0.6 -----L Neck: -0.7 -----R Total: -0.6 -----L Total: -0.4 Bone mineral density has: decreased -7.4 % since study of: 10/24/2018 FRAX%s: The graph provided illustrates a 9.8% chance for a major osteoporotic fx and a 1.5% chance fo r the hips probability for fx in 10 years time. IMPRESSION: Osteopenia (T Score between -2.5 and -1) remains present. There is slightly increased risk of fracture and the patient may be considered for treatment. Re-Screen 2-5 years. NOTE: T-SCORE=SD OF THE YOUNG ADULT MEAN.
== END | disposition home or self-care (01) ==
LOC: RADBDWWP 11:19
PROVIDERS: ATTEND Internal Medicine
DX: C50.511 Malignant neoplasm of lower-outer quadrant of right female breast (principal); M81.0 Age-related osteoporosis without current pathological fracture; M85.89 Other specified disorders of bone density and structure, multiple sites
CPT/HCPCS: 77080

== ENCOUNTER → 2023-01-09 | Outpatient (CLI) | payer BC ==
--- NOTE | 2023-01-09 09:24 | MM ---
Reason for Exam: Known biopsy proven malignancy. Last screening mammogram was performed 10 month(s) ago. Patient History: Menarche at age 12. First Full-Term at age 32. Late child-bearing (after 30). Postmenopausal. Patient has history of breast feeding. Other cancer, age 37. Breast cancer, right, age 61. Previous chest radiation therapy at age 61. Hormonal Contraceptives for 5 years from age 25 until age 30. 03/23/2022, Malignant US biopsy breast VAD RT on the right side. Maternal aunt had breast cancer, age 60. Prior Study Comparison: 07/09/2014 Bilateral Screening Mammogram, [facility]. 09/14/2014 Left Diagnostic Mammogram, [facility]. 07/27/2016 Bilateral Screening Mammogram, [facility]. 10/24/2018 Bilateral Diagnostic Mammogram, [facility]. 09/24/2019 Bilateral Diagnostic Mammogram, [facility]. 09/24/2019 Left Diagnostic Ultrasound, [facility]. 01/31/2021 Bilateral Screening Mammogram, [facility]. 03/06/2022 Bilateral MG 3D screening mammo w/cad, [facility]. 03/09/2022 Right US breast workup limited RT, [facility]. 03/09/2022 Right MG 3D work up w/cad RT, [facility]. 03/23/2022 Right MG diagnostic mammo RT wo CAD, [facility]. Tissue Density: The breast tissue is heterogeneously dense. This may lower the sensitivity of mammography. Findings: Analyzed By CAD. Postoperative lumpectomy changes right breast. No evidence for recurrent or residual mass. No mass within the left breast. No suspicious calcifications present. Overall Assessment: Benign, BI-RAD 2 Management: Diagnostic Mammogram of both breasts in 1 year. . Results were given to the patient verbally at the time of exam. Patient should continue monthly self-breast exams. A clinical breast exam by your physician is recommended on an annual basis. This exam should not preclude additional follow-up of suspicious palpable abnormalities. Note on Meghan scores and lifetime risk: 1. A Meghan score greater than 3% is considered moderate risk. If this is the case, consider specialist referral to assess eligibility for a risk reducing agent. 2. If overall lifetime risk for the development of breast cancer is 20% or higher, the patient may qualify for future screening with alternating mammogram and breast MRI. Electronically signed and approved by: Herb Del Rio M.D. Radiologis
== END | disposition home or self-care (01) ==
LOC: RADMAMWWP 08:40
PROVIDERS: ATTEND Obstetrics & Gynecology Obstetrics
DX: R92.333 Mammographic heterogeneous density, bilateral breasts (principal); Z85.3 Personal history of malignant neoplasm of breast; Z78.0 Asymptomatic menopausal state; Z80.3 Family history of malignant neoplasm of breast
CPT/HCPCS: 77062; 77066

== ENCOUNTER → 2023-02-19 | Outpatient (CLI) | payer BC ==
[2023-02-20 02:57] LABS: ALT 24 U/L (10-49); AST 17 U/L (14-35); Albumin 4.6 g/dL (3.8-4.9); Alkaline Phosphatase 43 U/L (41-126); Blood Urea Nitrogen 19.6 mg/dL (9.0-27.0); C-Peptide 2.44 ng/mL (0.81-3.85); Carbon Dioxide 25.5 mmol/L (21.6-31.8); Chloride 103 mmol/L (96-109); Globulin 2.3 g/dL (1.6-3.3); Glucose 100 mg/dL (70-110); Potassium 4.9 mmol/L (3.5-5.5); Sodium 138 mmol/L (135-145); Total Protein 6.9 g/dL (6.2-8.2)
[2023-02-20 03:42] LABS: T4, Free (Free Thyroxine) 1.13 ng/dL (0.80-1.80)
== END | disposition home or self-care (01) ==
LOC: LABWHC1 14:12
PROVIDERS: ATTEND Internal Medicine Endocrinology, Diabetes & Metabolism
DX: E11.9 Type 2 diabetes mellitus without complications (principal); E04.2 Nontoxic multinodular goiter
CPT/HCPCS: 36415; 80053; 83519; 84439; 84443; 84681; 86376

== ENCOUNTER → 2023-03-02 | Outpatient (CLI) | payer BC | END | disposition home or self-care (01) | LOC: LABWHC1 11:39 | PROVIDERS: ATTEND Nurse Practitioner Family | DX: K11.7 Disturbances of salivary secretion (principal) | CPT/HCPCS: 36415; 86235 ==

== ENCOUNTER → 2023-07-11 | Outpatient (CLI) | payer BC ==
--- NOTE | 2023-07-12 14:41 | MR ---
EXAMINATION TYPE: MR pituitary wo/w con DATE OF EXAM: 07/11/2023 12:47 PM COMPARISON: NONE HISTORY: Loss of smell and taste, Left side hearing loss, Hx Rt Breast cancer Apr-2022, Left eyelid l ower skin cancer CONTRAST: Patient received 6.5 mL intravenous Gadavist gadolinium contrast. Multiplanar MultiSpin echo imaging of the pituitary fossa was performed. Unenhanced followed by cont rast enhanced images are submitted. The unenhanced portion of the study fails to demonstrate evidence for hyperintense pituitary lesion. The pituitary gland is of normal size and measures 1.1 x 0.6 cm.. Following contrast administration there is a 3 mm filling defect seen posterior aspect pituitary gland to the left of midline. Small m icroadenoma is not excluded. Pituitary stalk is midline. Suprasellar cistern is unremarkable without evidence for mass. Optic chiasm has a normal appearance. Cavernous sinus including the carotid ves sels appear to be within normal limits. IMPRESSION: 1. Small microadenoma is difficult to exclude.
== END | disposition home or self-care (01) ==
LOC: RADMRIMAIN 11:25
PROVIDERS: ATTEND Otolaryngology
DX: H91.92 Unspecified hearing loss, left ear (principal); R43.9 Unspecified disturbances of smell and taste; Z85.3 Personal history of malignant neoplasm of breast; Z85.828 Personal history of other malignant neoplasm of skin
CPT/HCPCS: 70553; A9585

== ENCOUNTER → 2023-09-12 | Outpatient (CLI) | payer BC ==
[2023-09-12 16:00] LABS: ALT 18 U/L (10-49); AST 19 U/L (14-35); Albumin 4.7 g/dL (3.8-4.9); Albumin/Globulin Ratio 2.14 Ratio (1.60-3.17); Alkaline Phosphatase 38 U/L (41-126); BUN/Creat Ratio 24.88 Ratio (12.00-20.00); Blood Urea Nitrogen 19.9 mg/dL (9.0-27.0); Calcium 9.7 mg/dL (8.7-10.3); Carbon Dioxide 22.6 mmol/L (21.6-31.8); Chloride 107 mmol/L (96-109); Globulin 2.2 g/dL (1.6-3.3); Glucose 106 mg/dL (70-110); Potassium 4.1 mmol/L (3.5-5.5); Sodium 142 mmol/L (135-145); T4, Free (Free Thyroxine) 1.24 ng/dL (0.80-1.80); Total Bilirubin 0.9 mg/dL (0.3-1.2); Total Protein 6.9 g/dL (6.2-8.2)
[2023-09-12 22:48] LABS: ACTH 36.3 pg/mL (0.00-45.99)
== END | disposition home or self-care (01) ==
LOC: LABWHC1 09:35
PROVIDERS: ATTEND Internal Medicine Endocrinology, Diabetes & Metabolism
DX: D35.2 Benign neoplasm of pituitary gland (principal)
CPT/HCPCS: 36415; 80053; 82024; 82533; 84146; 84305; 84439; 84443; 84480

== ENCOUNTER → 2023-12-10 | Outpatient (CLI) | payer BC, MEDICARE ==
--- NOTE | 2023-12-10 18:28 | US ---
EXAMINATION TYPE: US thyroid st tissue head/neck DATE OF EXAM: 12/10/2023 COMPARISON: 03/14/2022 CLINICAL INDICATION: Female, 63 years old with history of E04.2 MULTINODULAR GOITER; Patient states f ollowing up thyroid nodules GLAND SIZE: Right Lobe: 5.2 x 1.9 x 1.6 cm Overall Parenchyma: heterogeneous Left Lobe: 4.8 x 1.8 x 2.1 cm Overall Parenchyma: heterogeneous Isthmus Thickness: 0.4 cm NODULES RIGHT: # of nodules measured on right: 1 1. 0.7 X 0.4 x 0.6 cm, mid mid, cystic or almost completely cystic, anechoic nodule, which is wider than tall, with smooth margins, with echogenic foci. Prior size: 0.6 x 0.3 x 0.4 cm LEFT: # of nodules measured on left: 2 1. 3.1 X 1.1 x 1.5 cm, mid mid, solid or almost completely solid, isoechoic nodule, which is wider than tall, with ill-defined margins, without echogenic foci. Prior size: 2.9 x 1.4 x 2.0 cm TR3 2. 1.0 X 0.9 x 0.8 cm, upper mid, mixed cystic and solid, isoechoic nodule, which is wider than ta ll, with ill-defined margins, without echogenic foci. Prior size: 1.2 x 0.8 x 0.9 cm ISTHMUS: # of nodules measured in the isthmus: 0 Bilateral neck scanned, no evidence of lymphadenopathy. IMPRESSION: Mildly Suspicious: FNA if ? 2.5 cm; Follow if ? 1.5 cm at 1, 3, and 5 y 2017 ACR TI-RADS LEVEL: TR3 *Highest TI-RADS level nodule reported [facility], , 12/10/2023 6:26 PM
== END | disposition home or self-care (01) ==
LOC: RADUSWWP 16:02
PROVIDERS: ATTEND Internal Medicine Endocrinology, Diabetes & Metabolism
DX: E04.2 Nontoxic multinodular goiter (principal)
CPT/HCPCS: 76536

== ENCOUNTER → 2024-01-10 | Outpatient (CLI) | payer MEDICARE ==
[2024-01-10 21:01] LABS: ALT 24 U/L (10-49); AST 20 U/L (14-35); Albumin 4.4 g/dL (3.8-4.9); Alkaline Phosphatase 38 U/L (41-126); BUN/Creat Ratio 20.88 Ratio (12.00-20.00); Blood Urea Nitrogen 16.7 mg/dL (9.0-27.0); Calcium 9.4 mg/dL (8.7-10.3); Carbon Dioxide 23.6 mmol/L (21.6-31.8); Chloride 105 mmol/L (96-109); Glucose 103 mg/dL (70-110); Sodium 139 mmol/L (135-145); T4, Free (Free Thyroxine) 1.08 ng/dL (0.80-1.80); Total Bilirubin 1.2 mg/dL (0.3-1.2); Total Protein 6.4 g/dL (6.2-8.2)
[2024-01-11 13:10] LABS: ACTH 23.8 pg/mL (0.00-45.99)
== END | disposition home or self-care (01) ==
LOC: LABWHC1 12:01
PROVIDERS: ATTEND Internal Medicine Endocrinology, Diabetes & Metabolism
DX: D35.2 Benign neoplasm of pituitary gland (principal)
CPT/HCPCS: 36415; 80053; 82024; 82533; 84146; 84305; 84439; 84443; 84480

== ENCOUNTER → 2024-06-19 | Outpatient (CLI) | payer MEDICARE ==
[2024-06-19 16:00] VITALS: BP 115/62; PULSE 62; RESP 16; TEMP 98.1
--- NOTE | 2024-06-19 16:53 | P.SLEEP ---
History of Present Illness DATE: 06/19/2024 CONSULTATION/NEW PATIENT EVALUATION HISTORY OF PRESENT ILLNESS/SLEEP-WAKE EVALUATION: 63-year-old lady had been evaluated in the sleep center for possible obstructive sleep apnea hypopnea syndrome. SLEEP SCHEDULE: Usually sleep schedule from 1012 midnight until 5-8 AM. FALLING ASLEEP: Patient has some difficulties with falling asleep, although no TV in bedroom. DURING SLEEP: Patient sleeps on the side position with snoring and episodes of stop breathing. Positive history of grinding teeth, dry mouth, palpitation, heartburn, sweating. Patient wakes up from sleep up to 3 times with nocturia no history of hypnogogical hallucinations, sleep paralysis, or cataplexy. DURING THE DAY/WAKE STATE: During the day patient has difficulties to pay attention, falling asleep, has problems with memory, concentration, irritability, depression, anxiety. [place] sleepiness scale is 7. Patient may take 1 nap around 2 PM. PAST MEDICAL HISTORY: Right breast cancer. PAST SURGICAL HISTORY: Right mastectomy, cholecystectomy, left knee surgery for ACL problems, several basal cell carcinomas and squamous cell carcinoma have been removed from skin. MEDICATIONS: Have been reviewed, please see below. SOCIAL HISTORY: Please see below. FAMILY HISTORY: Please see below. REVIEW OF SYSTEMS: Snoring, multiple awakenings from sleep, awakenings with choking and gasping for air. No fevers. No double vision. No recent chest pain. No shortness of breath. No abdominal pain. No bleeding episodes. No blood in urine. No seizure episodes. PHYSICAL EXAMINATION: GENERAL: A pleasant patient without any distress. VITAL SIGNS:, Weight 156 pounds, BMI 22.0. HEENT: PERRLA, EOMI. Evaluation of oropharynx showed tongue protrudes midline, low position of soft palate Mallampati 3, retrognathia 2 to 3 mm. NECK: Supple. No JVD. Thyroid is not palpable. 13 inches in circumference. LUNGS: Clear to percussion and to auscultation. Good air exchange. No wheezing or rhonchi. HEART: S1, S2 regular. No murmurs, gallops or rubs. ABDOMEN: Soft and nontender. Bowel sounds are present. No organomegaly appreciated. EXTREMITIES: No clubbing or cyanosis. CATEGORY MANAGER: Awake, alert, and oriented x3. Cranial nerves 2 to 7 intact. There is no fasciculation or atrophy noted. No focal deficits observed. ASSESSMENT: 1. Snoring, multiple awakenings from sleep with episodes of choking and gasping for air, low position of soft palate Mallampati 3, retrognathia 3 mm. Obstructive sleep apnea hypopnea syndrome. 2. History of right breast cancer treated by mastectomy. 3. Status post cholecystectomy. 4. Status post left knee surgery for ACL problems. 5 status post basal cell carcinomas and squamous cell carcinoma removed from the skin. PLAN: 1. Polysomnography for evaluation of patient's breathing during sleep. 2. Following plan after reading sleep study. 3. Preferable position during sleep on the side. 4. No driving if patient feels any sleepiness. Patient is aware of civil and criminal liability for unsafe driving. 5. Sleep hygiene with regular sleep time for at least 7.5-8 hours. 6. Watching weight. Thank you very much for referring this patient for consultation. Sincerely, Jayson Staley MD, PhD, FAASM. Diplomat of [place] [employer], Sleep Medicine Board by [place] [employer] [facility] [place] cc: Jose Herrera MD Past Medical History Past Medical History: Coronary Artery Disease (CAD), Cancer, Diabetes Mellitus, Thyroid Disorder Additional Past Medical History / Comment(s): breast, skin cancer, mitral valve regurgitation, low heart rate, Insomnia, sinus headaches History of Any Multi-Drug Resistant Organisms: None Reported Past Surgical History: Cholecystectomy Additional Past Surgical History / Comment(s): bowel surgery with colon resection, left knee surgery, left ear drum replacement, left wrist surgery/rec onstruction Additional Past Anesthesia/Blood Transfusion Reaction / Comment(s): low heart rate in the 30s after anesthesia, woke up one time Past Psychological History: No Psychological Hx Reported Smoking Status: Former smoker Past Alcohol Use History: Occasional Additional Past Alcohol Use History / Comment(s): quit smoking in 1992 approximately, 21-2 alcoholic beverages per week Past Drug Use History: None Reported - Past Family History Mother Family Medical History: No Reported History Father Family Medical History: Cancer, Hypertension, Renal Disease Additional Family Medical History / Comment(s): skin Medications and Allergies Home Medications Medication Instructions Recorded Confirmed Type ALPRAZolam [Xanax] 0.25 mg PO DIRECTED PRN 09/06/21 06/19/24 History Calcium Carbonate [Tums] 500 mg PO DAILY 09/06/21 03/14/22 History Fish Oil/Dha/Epa [Fish Oil 1,200 1 each PO DAILY 09/06/21 06/19/24 History mg Fish Oil] Meloxicam 7.5 mg PO DAILY PRN 09/06/21 03/14/22 History Zolpidem Tartrate [Ambien Cr] 6.25 mg PO HS PRN 09/06/21 03/14/22 History cycloSPORINE 0.05% OPHTH SOLN 1 applicator BOTH EYES Q12H 09/06/21 06/19/24 History [Restasis] Fluticasone Nasal [place] [Flonase 1 spray EA NOSTRIL DAILY 09/07/21 03/14/22 History Nasal [place]] Anastrozole 1 mg PO DAILY 06/19/24 06/19/24 History Calcium Citrate/Vitamin D3 1 each PO DIRECTED 06/19/24 06/19/24 History [Citracal + D Maximum [place]] Cholecalciferol [Vitamin D3 (10 200 units PO DAILY 06/19/24 06/19/24 History Mcg = 400 Iu)] Allergies Allergy/AdvReac Type Severity Reaction Status Date / Time acetaminophen Allergy Nausea & Verified 03/14/22 14:38 [From Darvocet-N] Vomiting amoxicillin Allergy Itching Verified 03/14/22 14:38 cefazolin [From Kefzol] Allergy Itching Verified 03/14/22 14:38 cefuroxime [From Ceftin] Allergy Itching Verified 03/14/22 14:38 clavulanic acid Allergy Itching Verified 03/14/22 14:38 [From Augmentin] propoxyphene Allergy Nausea & Verified 03/14/22 14:38 [From Darvocet-N] Vomiting meperidine [From Demerol] AdvReac Nausea & Verified 03/14/22 14:38 Vomiting Physical Exam Vitals: Vital Signs Temp Pulse Resp BP Pulse Ox 06/19/24 15:59 98.1 F 62 16 115/62 62 L Intake and Output 06/19/24 06/19/24 06/19/24 06:59 14:59 22:59 Other: Weight 70.76 kg Sleep Note - Sleep Data ESS Total: 7 - Sleep Note Sleep Note: Temperature: 98.1 F Pulse Rate: 62 Respiratory Rate: 16 Blood Pressure: 115/62 SpO2: 62 Height: 5 ft 10.5 in Weight: 70.76 kg BMI: Neck Circumference: 13
== END | disposition home or self-care (01) ==
LOC: 3 N SLEEP 15:34
PROVIDERS: ATTEND Internal Medicine
DX: G47.33 Obstructive sleep apnea (adult) (pediatric) (principal); Z85.3 Personal history of malignant neoplasm of breast; Z85.89 Personal history of malignant neoplasm of other organs and systems; Z90.49 Acquired absence of other specified parts of digestive tract; Z85.828 Personal history of other malignant neoplasm of skin; Z98.890 Other specified postprocedural states; Z90.13 Acquired absence of bilateral breasts and nipples; Z88.1 Allergy status to other antibiotic agents; Z88.8 Allergy status to other drugs, medicaments and biological substances; Z88.6 Allergy status to analgesic agent; Z88.5 Allergy status to narcotic agent
CPT/HCPCS: 99211

== ENCOUNTER → 2024-06-23 | Outpatient (CLI) | payer MEDICARE ==
[2024-06-23 18:54] LABS: HCT 41.4 % (39.6-50.0); HGB 13.8 g/dL (13.0-17.0); MCH 31.3 pg (27.0-32.0); MCHC 33.3 g/dL (32.0-37.0); MCV 93.9 FL (80.0-97.0); Mean Platelet Volume 10.1 FL (9.5-12.2); NRBC Per 100 WBC 0 X 10*3/uL (0.00-0.01); Platelet Count 187 X 10*3/uL (140-440); RBC 4.41 X 10*6/uL (4.40-5.60); RDW 12.7 % (11.5-14.5); WBC 4.51 X 10*3/uL (4.50-10.00)
[2024-06-23 19:04] LABS: ALT 21 U/L (10-49); AST 19 U/L (14-35); Albumin 4.4 g/dL (3.8-4.9); Alkaline Phosphatase 52 U/L (41-126); BUN/Creat Ratio 21.62 Ratio (12.00-20.00); Blood Urea Nitrogen 17.3 mg/dL (9.0-27.0); Calcium 9.5 mg/dL (8.7-10.3); Carbon Dioxide 24.3 mmol/L (21.6-31.8); Chloride 105 mmol/L (96-109); Chol/HDL Ratio 4.67 Ratio; Globulin 2.2 g/dL (1.6-3.3); Glucose 106 mg/dL (70-110); LDL Cholesterol,Calculated 129.4 mg/dL (0.0-131.0); Potassium 4.2 mmol/L (3.5-5.5); Sodium 140 mmol/L (135-145); T4, Free (Free Thyroxine) 1.19 ng/dL (0.80-1.80); Total Protein 6.6 g/dL (6.2-8.2)
== END | disposition home or self-care (01) ==
LOC: LABWHC1 13:14
PROVIDERS: ATTEND Internal Medicine Endocrinology, Diabetes & Metabolism
DX: D35.2 Benign neoplasm of pituitary gland (principal); E78.5 Hyperlipidemia, unspecified; E11.9 Type 2 diabetes mellitus without complications; R00.2 Palpitations
CPT/HCPCS: 36415; 80053; 80061; 82533; 83036; 84146; 84305; 84439; 84443; 85027

== ENCOUNTER → 2024-07-18 | Outpatient (CLI) | payer MEDICARE ==
--- NOTE | 2024-07-18 11:04 | BD ---
EXAMINATION TYPE: Axial Bone Density DATE OF EXAM: 07/18/2024 CLINICAL HISTORY: 63 years old Female. ICD-10 CODE: M85.80 DISRD OF BONE DENSITY AND STRUCTURE Z78.0 , Additional History: Height: 5 ft 10 1/2 inches Weight: 153.3 FRAX RISK QUESTIONS: Alcohol (3 or more units per day): no Family History (Parent hip fracture): no Glucocorticoids (More than 3mos): no (Ex: prednisone, prednisolone, methylprednisolone, dexamethasone, and hydrocortisone). History of Fracture in Adulthood: yes Secondary Osteoporosis: 1. Type 1 Diabetes: no 2. Hyperthyroidism: no 3. Menopause before 45: no 4. Malnutrition: no 5. Chronic liver disease: no Rheumatoid Arthritis: no Current Tobacco Use: no RISK FACTORS HISTORY OF: History of Wrist Fracture: left wrist When: age 17 Surgery to Spine/Hip(right/left)/Wrist (right/left): no EXAM MEASUREMENTS: Bone mineral densitometry was performed using the [employer] System. Bone mineral density as measured about the Lumbar spine is: ----- L1-L4(G/cm2): 0.939 T Score Values are as follows: ----- L1: -1.0 ----- L2: -2.3 ----- L3: -2.4 ----- L4: -2.4 ----- L1-L4: -2.0 Z Score Values are as follows: ----- L1: 0.5 ----- L2: -0.9 ----- L3: -0.9 ----- L4: -0.9 ----- L1-L4: -0.6 Bone mineral density has: increased 4.4 % since study of: 07.17.2022 Bone mineral density about the R hip (g/cm2): 0.832 Bone mineral density about the L hip (g/cm2): 0.850 T Score values are as follows: -----R Neck: -1.7 -----L Neck: -1.8 -----R Total: -1.4 -----L Total: -1.3 Z Score values are as follows: -----R Neck: -0.3 -----L Neck: -0.4 -----R Total: -0.3 -----L Total: -0.1 Bone mineral density has: increased 2.6 % since study of: 5..2022 FRAX%s: The graph provided illustrates a 15.1% chance for a major osteoporotic fx and a 2.2% chance f or the hips probability for fx in 10 years time. IMPRESSION: Osteopenia (T Score between -2.5 and -1) remains present. There remains slightly increased risk of fracture and the patient may be considered for treatment. Re-Screen 2-5 years. NOTE: T-SCORE=SD OF THE YOUNG ADULT MEAN. [facility], , 07/18/2024 11:01 AM
== END | disposition home or self-care (01) ==
LOC: RADBDWWP 10:15
PROVIDERS: ATTEND Internal Medicine
DX: M85.89 Other specified disorders of bone density and structure, multiple sites (principal); Z78.0 Asymptomatic menopausal state
CPT/HCPCS: 77080

== ENCOUNTER 2024-08-26 19:32 | Outpatient (CLI) | payer MEDICARE ==
--- NOTE | 2024-09-04 10:32 | P.PCN ---
Description of Procedure: POLYSOMNOGRAPHY REPORT PROCEDURE(S)/DATE(S): Polysomnography 08/26/2024 CLINICAL: Patient has been seen in the sleep center for evaluation of obstructive sleep apnea-hypopnea syndrome. Please see my consultation. Sleep study has been done for evaluation of patient breathing during the sleep. PROCEDURE: The standard montage for clinical polysomnography included the electroencephalogram, the electrooculogram, the mentalis surface electromyography and Lead II cardiography. The respiratory battery consisted of measurements of nasal/buccal air flow, pressure transducer measurements from nose, thoracic and/or abdominal effort and intercostal surface electromyography. Video monitoring has been done to check for any parasomnia events. Nocturnal oxyhemoglobin saturations were obtained by finger oximetry. Step-gregory titration with positive airway pressure was utilized to control the respiratory events, if necessary. RESULTS: During the diagnostic sleep study sleep efficiency was decreased to 79.6%. Latency to sleep onset was normal 9.5 min. Sleep architecture showed stage NI was slightly increased to 8.9%, Delta sleep was short 1.3%, REM sleep was short 13.1%. Respiratory channel showed 1 obstructive apneas, 0 mixed apneas, 0 central apneas, 9 hypopneas with lowest oxygen level 89%. Total apnea hypopnea index was 2.0. Heart rate was in the range between 40 and 54, average 48. EMG showed 3.8 periodic limb movements per hour with 0.6 micro-arousals per hour. IMPRESSIONS: 1. No significant respiratory abnormalities have been documented during the sleep study, normal oxygenation during sleep. 2. No significant periodic limb movements have been documented. Please see other impressions from consultation PLAN: 1. Sleep hygiene with regular time in bed for at least 7-1/2 hours . 2. No driving if feeling sleepiness. Thank you very much for allowing me to participate in the management of your patient. Sincerely, Jayson Staley MD, PhD, FAASM. Diplomat of [place] [employer], Sleep Medicine Board by [place] [employer] [facility] [place] cc: Yunior Cruz DO, Reddy Morgan DO
== END 2024-08-27 05:30 | disposition home or self-care (01) ==
LOC: 3 N SLEEP 19:32
PROVIDERS: ATTEND Internal Medicine
DX: G47.33 Obstructive sleep apnea (adult) (pediatric) (principal); Z88.6 Allergy status to analgesic agent; Z88.1 Allergy status to other antibiotic agents; Z88.5 Allergy status to narcotic agent; Z88.0 Allergy status to penicillin
CPT/HCPCS: 95810